=== PATIENT | female | born 1940 | race Caucasian/White ===

== ENCOUNTER 2021-11-23 14:32 | Inpatient (IN) | payer MEDICARE, BC ==
[~2021-11-23] VITALS: Ht 160 cm; Wt 53.5 kg
[2021-11-23 15:06] LABS: MEAN CORPUSCULAR HEMOGLOBIN 29.7 uug (24.7-32.8); MEAN CORPUSCULAR VOLUME 88.5 fL (75.5-95.3); PLATELET COUNT (AUTO) 391 K/uL (179-408)
[2021-11-23 15:11] LABS: POTASSIUM 3.6 mmol/L (3.5-5.1)
[2021-11-23] MEDS ORDERED: IV NS 1000 ML 1,000 ML IV ONE (15:15)
[2021-11-23 15:16] LABS: BILIRUBIN,DIRECT 0.3 mg/dL (0.0-0.2); BILIRUBIN,TOTAL 0.8 mg/dL (0.2-1.0); TOTAL PROTEIN, SERUM 6.9 g/dL (6.4-8.2)
[2021-11-23] MEDS ORDERED: LET TOPICAL SOLUTION 8 ML UDC TP ONE (15:30)
[2021-11-23] MEDS ORDERED: LORAZEPAM 2 MG/1 ML VIAL IV ONE (15:30)
[2021-11-23] MEDS ORDERED: LORAZEPAM 2 MG/1 ML VIAL ONE (15:36)
[2021-11-23] MEDS ORDERED: LET TOPICAL SOLUTION 8 ML UDC ONE (15:46)
[2021-11-23] MEDS ORDERED: levETIRAcetam IV 1,000 MG in IV DEXTROSE 5% 100 ML IV SCH (16:15)
[2021-11-23] MEDS ORDERED: PANT40TA2 PO (18:00)
[2021-11-23] MEDS ORDERED: IRBE150T28 PO (18:08)
[2021-11-23] MEDS ORDERED: TRAZ-182 PO (18:08)
[2021-11-23] MEDS ORDERED: SPIR25TA6 PO (18:08)
[2021-11-23] MEDS ORDERED: ROSU10TA2 PO (18:08)
[2021-11-23] MEDS ORDERED: ESCI20TA44 PO (18:08)
[2021-11-23] MEDS ORDERED: BUPR-53 PO (18:08)
[2021-11-23] MEDS ORDERED: ASPI-866 PO (18:08)
--- NOTE | 2021-11-23 18:43 | NUR ---
Patient will be going to room 303 after shift change.
[2021-11-23 20:00] VITALS: BP 159/90
--- NOTE | 2021-11-23 20:05 | NUR ---
nursing general assessment was not done, this is now performed.
--- NOTE | 2021-11-23 20:18 | NUR ---
report given to Brock OBRIEN.
[2021-11-23] MEDS ORDERED: OLANZAPINE 10 MG VIAL IM ONE (20:45)
--- NOTE | 2021-11-23 20:45 | NUR ---
Admitted patient in Tele floor under the care of Dr Yi, patient awake but confused, verbally responsive but unable to make a normal conversation, with left temporal head laceration with sutures, body check was done with left hip bruise, and old heal scar on the left hip, patient has breast implants. Patient kept clean and dry, noted with restlessness, tries to get out of bed, risk for fall, [employer] staff seated by patient door to prevent from getting out of bed, bed alarm was on, cont to monitor.
--- NOTE | 2021-11-23 20:56 | NUR ---
pt transferred to room 303 via [facility] with all belongings. RN Will at bedside to receive the pt.
[2021-11-23] MEDS ORDERED: ACETAMINOPHEN 650 MG SUPP.RECT RC PRN (21:15)
[2021-11-23] MEDS ORDERED: OLANZAPINE 10 MG VIAL IM PRN (21:15)
--- NOTE | 2021-11-23 22:00 | NUR ---
Patient daughter So Rodriguez called the hospital and left a message. Called the daughter So and she have a few question regarding the mother. So said that she the decision maker for her mother and would like her mother to be DNR. Daughter stated that she has all paper work in her computer would to email her mother advance directives and DPOA papers. Informed the daughter that German is our manager of case management and would give to S.W her email address [email or web address] and phone number . So states the her mother is a DNR, another nurse Afshan RN spoke to the daughter via phone as witness.
[2021-11-23] MEDS: IV D5/ 0.9% NACL 1,000 ML IV PRN (23:14)
[2021-11-23] MEDS: ENALAPRILAT DIHYDRATE 1.25 MG/1 ML VIAL IV PRN (23:26)
[2021-11-24] VITALS: BP 132/77
[2021-11-24] MEDS: MORPHINE SULFATE 2 MG/1 ML DISP.SYRIN IV PRN ×4 (01:58→20:21)
[2021-11-24 04:00] VITALS: BP 103/55
--- NOTE | 2021-11-24 05:44 | NUR ---
Patient asleep but arousable, no sob no chest pain, with episode of agitation, resistive to care, multiple episode of trying to get out of bed, patient unredirectable, patient kept clean and dry, frequent visual check done, cont to monitor.
[2021-11-24 06:49] LABS: HEMATOCRIT 31.6 % (31.2-41.9); MEAN CORPUSCULAR VOLUME 87.9 fL (75.5-95.3); PLATELET COUNT (AUTO) 346 K/uL (179-408)
--- NOTE | 2021-11-24 07:00 | NUR ---
RECEIVED PT ON BED SLEEPING. NO DISTRESS NOTED. NO IV ACCESS NOTED. PT PULLED IT OUT LAST NIGHT PER NOC SHIFT NURSE.
[2021-11-24 07:33] LABS: BILIRUBIN,TOTAL 0.7 mg/dL (0.2-1.0); MAGNESIUM 1.8 mg/dL (1.8-2.4); POTASSIUM 3.7 mmol/L (3.5-5.1); TOTAL PROTEIN, SERUM 6.7 g/dL (6.4-8.2)
--- NOTE | 2021-11-24 07:34 | NUR ---
Patient awake, with restlessness, agitation, yelling/crying, given Morphine iv for pain management, patient sleep on and off, patient pulled IV. Endorsed to next shift to reinsert iv, frequent visual check cont to monitor.
[2021-11-24 07:40] LABS: THYROID STIMULATING HORMONE 2.316 mIU/mL (0.358-3.740)
[2021-11-24] MEDS: OLANZAPINE 10 MG VIAL IM PRN (07:48)
[2021-11-24] MEDS: PANTOPRAZOLE SODIUM 40 MG VIAL IV SCH (09:00)
--- NOTE | 2021-11-24 09:00 | NUR ---
PT IS SCREAMING, CONFUSED AND AGITATED WANT TO GET OUT OF THE BED. TRANSFERRED PT ON A ARMIDA CHAIR FOR SAFETY FOR COMFORT. WILL CONT TO MONITOR
--- NOTE | 2021-11-24 10:00 | NUR ---
IN AND OUT CATH DONE FOR [facility] SAMPLE.
[2021-11-24 10:29] LABS: *BILIRUBIN,URIN NEGATIVE (NEGATIVE); *BLOOD, URINE NEGATIVE (NEGATIVE); *CLARITY,URINE CLEAR (CLEAR); *COLOR,URINE YELLOW (YELLOW); *KETONES,URINE 1+ (NEGATIVE); *UROBILINOGEN,URINE 0.2 E.U./dl (NORMAL); LEUKOCYTE ESTERASE ,URINE NEGATIVE (NEGATIVE); NITRITE, URINE NEGATIVE (NEGATIVE); PH,URINE 5.5 (5.0-8.0); UGLUCOSE NEGATIVE (NEGATIVE)
--- NOTE | 2021-11-24 11:50 | NUR ---
IV ACCESS ESTABLISHED. RESTARTED IV FLUIDS.
[2021-11-24 12:01] VITALS: BP 129/54
--- NOTE | 2021-11-24 13:00 | NUR ---
PT DAUGHTER IN LAW ADAM CAME BY TO VISIT. NOTIFIED HER ABOUT THE SITUATION OF HER MOTHER IN LAW
[2021-11-24 13:28] LABS: RBC,URINE 0-3 /HPF (0-3)
[2021-11-24 13:29] LABS: BACTERIA,URINE NONE SEEN /HPF (NONE SEEN); SQUAMOUS EPITHELIAL CELL,UR FEW /HPF (NONE SEEN)
--- NOTE | 2021-11-24 14:00 | NUR ---
PT IS CONFUSED AND AGITATED. MD ORDERED ATIVAN 1MG IV Q6HR PRN.
[2021-11-24] MEDS: LORAZEPAM 2 MG/1 ML VIAL IV PRN ×2 (14:08→21:04)
--- NOTE | 2021-11-24 14:45 | NUR ---
ATIVAN 1MG PRN EFFECTIVE. PT CALM DOWN, RELAX AND SLEEPING.
[2021-11-24 16:10] VITALS: BP 106/48
[2021-11-24] MEDS ORDERED: HYDR25TA4 PO (16:41)
[2021-11-24] MEDS ORDERED: DONE10TA44 PO (16:41)
[2021-11-24] MEDS ORDERED: CARV6.252 PO (16:41)
--- NOTE | 2021-11-24 17:30 | NUR ---
PT FAMILY REQUEST A SITTER FOR THE PT. [employer] NOTIFIED AND APPROVED.
[2021-11-24] MEDS: IV D5/ 0.9% NACL 1,000 ML IV PRN (18:08)
--- NOTE | 2021-11-24 18:38 | NUR ---
PT IS AWAKE, CRYING AND CONFUSED. NOTIFIED .
[2021-11-24 20:00] VITALS: BP 180/79
--- NOTE | 2021-11-24 20:26 | NUR ---
Received patient crying, unable to tell what she needs, given Morphine 2mg iv for pain, son at bedside, notify son will monitor for 45 to 1 hours if patient needs more other meds to helps her crying. cont to monitor.
[2021-11-25] VITALS: BP 161/61
[2021-11-25] MEDS: ENALAPRILAT DIHYDRATE 1.25 MG/1 ML VIAL IV PRN (01:14)
[2021-11-25] MEDS: MORPHINE SULFATE 2 MG/1 ML DISP.SYRIN IV PRN ×2 (01:32→12:31)
[2021-11-25] MEDS: OLANZAPINE 10 MG VIAL IM PRN ×2 (04:56→16:46)
--- NOTE | 2021-11-25 05:02 | NUR ---
Patient has severe agitation, given Zyprexa IM shot, cont 1;1 sitter for safety, BP stable. cont to monitor.
[2021-11-25 07:23] VITALS: BP 158/59
[2021-11-25] MEDS ORDERED: CLONIDINE-TTS 1 PATCH TD SCH (09:00)
--- NOTE | 2021-11-25 09:00 | NUR ---
PLAN OF DISCHARGE TODAY. PT IS GOING BACK HOME WITH / CAREGIVER. PT WILL BE ON HOSPICE PER FAMILY
[2021-11-25] MEDS: PANTOPRAZOLE SODIUM 40 MG VIAL IV SCH (09:06)
[2021-11-25] MEDS: LORAZEPAM 2 MG/1 ML VIAL IV PRN (09:25)
--- NOTE | 2021-11-25 10:00 | NUR ---
PT CONFUSED AND AGITATED. GAVE 1MG ATIVAN PRN. WILL CONT TO MONITOR.
[2021-11-25] MEDS ORDERED: CLON1PAT2 TD (11:06)
[2021-11-25] MEDS ORDERED: CLONIDINE TTS 2 PATCH TD SCH (12:00)
[2021-11-25 12:06] VITALS: BP 146/78
[2021-11-25] MEDS ORDERED: LORAZEPAM 2 MG/1 ML VIAL IV ONE (14:00)
--- NOTE | 2021-11-25 14:25 | NUR ---
ATIVAN 1MG IV PRN EFFECTIVE. PT IS RELAX AND SLEEPING. FAMILY AT BEDSIDE
--- NOTE | 2021-11-25 14:53 | NUR ---
PT IS SCHEDULED FOR PICK TO GO HOME AROUND [id number] PER HOSPICE NURSE. THEY WILL PROVIDE TRANSPO FOR THE PT.
[2021-11-25 17:21] VITALS: BP 146/78
--- NOTE | 2021-11-25 18:03 | NUR ---
pt was discharge. pickup by an ambulance going home. all belongings accounted for. daughter accompany pt to the ambulance.
== END 2021-11-25 17:45 | disposition hospice, home (50) | DRG 85 ==
LOC: ER 14:33 → EDSEX 14:33 → TELE3 20:33
PROVIDERS: ADMIT Internal Medicine; ATTEND Internal Medicine
PROC: 0JQ13ZZ Repair Face Subcutaneous Tissue and Fascia, Percutaneous Approach (ICD-10-PCS; principal; 2021-11-23)
DX: S06.5X0A Traumatic subdural hemorrhage without loss of consciousness, initial encounter (principal); N17.0 Acute kidney failure with tubular necrosis; D68.59 Other primary thrombophilia; G93.49 Other encephalopathy; S01.81XA Laceration without foreign body of other part of head, initial encounter; W01.0XXA Fall on same level from slipping, tripping and stumbling without subsequent striking against object, initial encounter; Y92.89 Other specified places as the place of occurrence of the external cause; Z66 Do not resuscitate; S06.6X0A Traumatic subarachnoid hemorrhage without loss of consciousness, initial encounter; G30.9 Alzheimer's disease, unspecified; F02.80 Dementia in other diseases classified elsewhere, unspecified severity, without behavioral disturbance, psychotic disturbance, mood disturbance, and anxiety; E86.0 Dehydration; R40.2352 Coma scale, best motor response, localizes pain, at arrival to emergency department; R40.2142 Coma scale, eyes open, spontaneous, at arrival to emergency department; R40.2212 Coma scale, best verbal response, none, at arrival to emergency department; Z79.82 Long term (current) use of aspirin; R62.7 Adult failure to thrive; D64.9 Anemia, unspecified; E83.52 Hypercalcemia; Z90.13 Acquired absence of bilateral breasts and nipples; Z85.3 Personal history of malignant neoplasm of breast; Z74.09 Other reduced mobility; Z90.710 Acquired absence of both cervix and uterus; Z96.643 Presence of artificial hip joint, bilateral; Z20.822 Contact with and (suspected) exposure to COVID-19; M48.02 Spinal stenosis, cervical region; M43.13 Spondylolisthesis, cervicothoracic region; M54.10 Radiculopathy, site unspecified; G89.29 Other chronic pain; I10 Essential (primary) hypertension; R29.6 Repeated falls; R82.4 Acetonuria
CPT/HCPCS: 36415; 70450; 71045; 72125; 72170; 83550; 83735; 84100; 84443; 84484; 85025; 85610; 85730; 87086; 93005; A4663; A6213; C9113; G0378; J1953; J2060; J2270; J2358; J3490; J7040; J7042